=== PATIENT | male | born 1995 | race Caucasian/White ===

== ENCOUNTER 2021-10-06 06:47 | Observation (INO) | payer BC, SELFPAY ==
[2021-10-06] VITALS (22 sets, daily range): BP systolic 111–142; BP diastolic 66–82; PULSE 64–110; RESP 16–20; TEMP 36.2–37.3; O2SAT 93–98; BMI 25.0
--- NOTE | 2021-10-06 07:17 | P.HP_ITS ---
Providers/Chief Complaint Admitting Physician: Holland Haile MD Chief Complaint: Abdominal pain History of Present Illness Mr.Kage Etienne is a pleasant 26 year old male otherwise healthy presented to outside facility with worsening abdominal pain. Patient experienced sudden onset abdominal pain associated with diarrhea and nausea and vomiting. Patient reports that the pain was started first in the upper abdomen being sharp and dull and then started referring to the right lower quadrant, as he got worse went to the ER for further evaluation. Reports that his son got sick last and his thought that it was a GI bug. Blood work showed WBC count 16.9, hemoglobin 15.8, platelet count 333, sodium 138, potassium 3.5, chloride 99, creatinine 0.8, albumin 5.1. Lactic acid 2.5. A CT scan of the abdomen pelvis was done that showed impression 1. Appendix is dilated up to 8 mm on series 2, image 63. May be slightly hyperemic. There is no significant periappendiceal inflammation. Nevertheless early acute appendicitis cannot be excluded in the appropriate clinical setting. 2. Findings may be related to ileus or enteritis. 3. Mildly prominent right lower quadrant lymph nodes may be seen mesenteric adenitis Patient was transferred to [facility] from [facility] as I accepted the patient for surgical evaluation and potential intervention. Patient received 1 dose of Levaquin per my request Review of Systems General: Reports: 10 or more systems reviewed and unremarkable except in HPI and below Physical Exam Const: COMMON NORMALS: no acute distress and patient oriented x3 GENERAL APPEARANCE: cooperative ORIENTATION/CONSCIOUSNESS: Yes awake, Yes oriented to person, Yes oriented to place and Yes oriented to time HENMT: COMMON NORMALS: normocephalic HEAD & SCALP: normocephalic Eye: COMMON NORMALS: Equal, round and reactive pupils present and no scleral icterus PUPIL: Yes Equal, round and reactive pupils present Lymph: LYMPHATIC: no lymphadenopathy noted Chest: COMMONS NORMALS: normal inspection of the chest Resp: COMMON NORMALS: normal respiratory effort and clear to auscultation bilaterally AUSCULTATION: clear to auscultation bilaterally Cardio: COMMON NORMALS: S1 normal heart sound present and S2 normal heart sound present; negative for No murmurs present (Cardio) HEART SOUNDS: S1 normal heart sound present and S2 normal heart sound present GI: COMMON NORMALS: Soft to palpation; negative for No hepatosplenomegaly present INSPECTION: Yes normal to inspection PALPATION: Yes Soft to palpation, No Firmness to palpation present (GI), Yes Tenderness to palpation present (GI) Details: RLQ (Localized guarding and tenderness at McBurney's point), No Guarding due to palpation present (GI), No Rigid due to palpation and No No hepatosplenomegaly present Neuro: COMMON NORMALS: patient oriented x3 SENSORIUM/ORIENTATION: Yes oriented to person, Yes oriented to place and Yes oriented to time Psych: COMMON NORMALS: mental status grossly normal Skin: COMMON NORMALS: no rashes or lesions noted GENERAL SKIN EXAM: no rashes or lesions noted A&P Assessment and plan (1) Acute appendicitis: After thorough history physical examination and reviewing the chart and images of the CT scan of the abdomen pelvis from the outside facility with my personal interpretion, I counseled the patient for laparoscopic appendectomy possible open. Indications, risks, benefits and alternatives were all discussed with the patient and did agree to proceed. Rationale was carefully and clearly discussed with the patient.Appropriate informed consent have been reviewed and signed. Status: Acute Attestations Medical Necessity Statement*: Observation for perioperative care Coding Level of Care Code Acute Chemistry Teacher for [facility] Fwd Exam Comprehensive Diagnoses Acute appendicitis K35.80
[2021-10-06] MEDS: morphine 4 mg/mL SDV 1 mL 2 MG IVP ×4 (07:22→19:21)
[2021-10-06] MEDS: lactated ringers 1,000 ML 150 ML IV ×3 (07:23→21:12)
--- NOTE | 2021-10-06 09:08 | ANES.PREANE2 ---
Pre-Anesthetic Assessment Height/Weight: Temp Pulse Resp BP Pulse Ox 98.1 F 106 H 16 114/66 97 10/06/21 07:36 10/06/21 07:36 10/06/21 07:36 10/06/21 07:36 10/06/21 07:36 Preop Diagnosis: Acute appendicitis Operation Date: 10/06/21 10:05 Proposed Procedures p Laparoscopic Appendectomy(Not Applicable) - Holland Haile MD Familial anesthetic complications: None Was Beta Yohana taken within 24 hours: N/A Was Clonidine taken within 24 hours: N/A Social No alcohol and No tobacco Exam alert, oriented x 3, clear to auscultation bilaterally and regular rate & rhythm Airway Submandibular: within normal limits Cervical ROM: within normal limits Mallampati: Class II Dentition: full History/ROS No significant history except as noted Anesthetic Plan ASA status: 1 Anesthesia: General Medications/Allergies Current Medications Generic Name Dose Route Start Last Admin Trade Name Freq PRN Reason Stop Dose Admin Lactated Ringer's 1,000 mls @ 150 mls/hr 10/06/21 07:15 10/06/21 07:23 Lactated Ringers IV 150 mls/hr .[id number] UMU Administration Morphine Sulfate 2 mg 10/06/21 07:06 10/06/21 07:22 Morphine 4 Mg/Ml Sdv 1 Ml IVP 2 mg Q2H PRN Administration SEVERE PAIN Data Anesthesia Cardiac Studies: No Data to Display
[2021-10-06] MEDS: acetaminophen 1,000 MG/100 ML PIGGYBACK 400 MG IV (09:47)
[2021-10-06] MEDS: sodium chloride 0.9% 1,000 ML 30 ML IV (11:30)
--- NOTE | 2021-10-06 12:22 | PM.OP ---
Operative Report Date of procedure: October 06, 2021 Pre-op diagnosis: Preop Diagnosis Acute appendicitis Post-op diagnosis: Acute retrocecal appendicitis Procedure done: Laparoscopic appendectomy Specimens removed/disposition: Appendix Surgeon: Holland Haile MD Teletypewriter Operator: Surgical karol Solomon Circulating nurse Nasreen Desai Estimated blood loss (mL): 5 Procedure: Patient after being identified in the holding area and asked to void urine, and informed consent per chart ,patient was then taken back to the OR placed in supine position got intubated by anesthesia left arm was tucked tucked ,Timeout was done verifying the patient's name/date of /planned procedure and destination after the procedure, all were in agreement., preoperative antibiotics administered per protocol. prep and drape of the abdomen was done under the usual sterile technique. Started by longitudinal skin incision supraumbilical using a Carpio trocar technique safe entry to the abdominal cavity was achieved verified by using 10 mm zero degree laparoscopy, switched to a 30? scope under direct visualization a suprapubic 5 mm trocar was inserted followed by another 5 mm trocar inserted in the left lower quadrant, I was able to position the patient in an T Sky and left side down, dissection of the prececal acutely inflamed appendix there was some adhesions towards the lateral pelvic wall that was taken down by sharp and blunt dissection, attention was deviated to the healthy base of the appendix where I had to switch the camera to 5 mm 30? scope got introduced through the left lower quadrant and through the Carpio trocar under direct visualization a GI stapler 45 mm blue load was applied at the healthy part of the base of the appendix, and an Endoloop PDS was applied onto the mesoappendix for control , the appendix was then retrieved in an Endo Catch bag, final survey was done of the abdomen and pelvis , showed no bleeding or evidence of injuries Multiple 5 mm clips were applied onto the mesoappendix as well as the appendectomy staple line and a right lateral pelvic wall for minimal oozing. Final look laparoscopy was done showing no other abnormalities or injuries, all trocars were taken out under direct visualization after the supraumblical trocar site was closed by #1 PDS sutures under direct vision using fascial closure device ,followed by skin closure using 3-0 Vicryl and 4-0 Monocryl of all trocar site incisions. infiltration of local lidocaine 2% was done to all incision sites.Dry dressing was applied. Count was completed at the end of the procedure for [employer],sponges and instruments Patient tolerated the procedure well and was transferred to the recovery area after extubation. I was present for the whole entire procedure
[2021-10-06] MEDS: HYDROmorphone 1 mg/mL INJ 1 mL 0.5 MG IVP (12:46)
[2021-10-06] MEDS: levofloxacin-dextrose 5 % 500 MG/100 ML PREMIX 100 MG IV (13:49)
[2021-10-06] MEDS: HYDROcodone-acetaminophen 5-325 mg Tablet 1 TAB PO ×2 (13:52→21:16)
--- NOTE | 2021-10-06 15:41 | ANE.PACU2 ---
Inpatient post-anesthesia follow up: Airway intact: Yes Vital signs: Temperature 98.2 F Pulse Rate 98 Respiratory Rate 18 Blood Pressure 123/75 Pulse Oximetry 95 Oxygen Delivery Me thod Room Air Oxygen Flow Rate Fraction of Inspir ed Oxygen Hydration adequate: Yes Nausea and vomiting: No Pain level: 3 Mental status: Baseline
--- NOTE | 2021-10-06 18:13 | PC.NURSE ---
Patient was a direct admit that got here around 0630 this AM. Patient went for appendectomy. Post procedure patient has fluids running and pain is being controlled with PRN medications. Patient is up and walking around in room. Incisions are intact and open to air. Patient ate a clear liquid dinner and tolerated well. Bowel sounds are present but no bowel movement. Will continue to monitor and give report to night nurse.
[2021-10-07] VITALS: BP 117/69; PULSE 52; RESP 14; TEMP 37.1; O2SAT 97
[2021-10-07 01:42] VITALS: RESP 18
[2021-10-07] MEDS: morphine 4 mg/mL SDV 1 mL 2 MG IVP ×2 (01:42→06:21)
[2021-10-07 04:00] VITALS: BP 133/72; PULSE 98; RESP 15; TEMP 37.1; O2SAT 98
[2021-10-07] MEDS: HYDROcodone-acetaminophen 5-325 mg Tablet 1 TAB PO (04:20)
[2021-10-07 05:53] LABS: Anion Gap 15.1 (5-19); Blood Urea Nitrogen 8 mg/dL (6-20); Calcium 9.4 mg/dL (8.5-10.5); Carbon Dioxide 24 mmol/L (22-29); Chloride 102 mmol/L (98-107); Glomerular Filtration Rate 162.9 mL/min (90-130); Glucose 127 mg/dL (65-115); Osmolality Calculated 284 mOsm/kg (285-295); Potassium 4.1 mmol/L (3.5-5.1); Sodium 137 mmol/L (136-145)
--- NOTE | 2021-10-07 05:59 | P.SS_ITS ---
Short Stay Summary Providers Date of Admit/Discharge: 10/07/21 Attending Provider: Holland Haile MD Chief Complaint: Abdominal pain HPI History of Present Illness Mr.Kage Etienne is a pleasant 26 year old male otherwise healthy presented to outside facility with worsening abdominal pain.? Patient experienced sudden onset abdominal pain associated with diarrhea and nausea and vomiting.? Patient reports that the pain was started first in the upper abdomen being sharp and dull and then started referring to the right lower quadrant, as he got worse went to the ER for further evaluation.? Reports that his son got sick last and his thought that it was a GI bug. Blood work showed WBC count 16.9, hemoglobin 15.8, platelet count 333, sodium 138, potassium 3.5, chloride 99, creatinine 0.8, albumin 5.1.? Lactic acid 2.5. A CT scan of the abdomen pelvis was done that showed impression 1.? Appendix is dilated up to 8 mm on series 2, image 63.? May be slightly hyp eremic.? There is no significant periappendiceal inflammation.? Nevertheless early acute appendicitis cannot be excluded in the appropriate clinical setting. 2.? Findings may be related to ileus or enteritis. 3.? Mildly prominent right lower quadrant lymph nodes may be seen mesenteric adenitis Patient was transferred to [facility] from [facility] as I accepted the patient for surgical evaluation and potential intervention. Patient received 1 dose of Levaquin per my request Patient undergone uneventful laparoscopic appendectomy for acute appendicitis Review of Systems General: Reports: 10 or more systems reviewed and unremarkable except in HPI and below Home Meds/Allergies Home Medications and Allergies Allergies Allergy/AdvReac Type Severity Reaction Status Date / Time Penicillins Allergy ADR-Itching Verified 10/07/21 17:27 Vitals/I&O/Wt Last Vital Signs Temp 98.7 F 10/07/21 04:00 Pulse 98 10/07/21 04:00 Resp 15 10/07/21 04:00 BP 133/72 10/07/21 04:00 Pulse Ox 98 10/07/21 04:00 10/06/21 10/06/21 10/07/21 14:59 22:59 06:59 Intake Total 3272.5 / 3272.5 1100 / 4372.5 Output Total 500 / 520 1500 / 2020 Balance 3252.5 / 3252.5 600 / 3852.5 -1500 / 2352.5 Weight last 48 hrs Weight 160 lb Physical Exam Narrative: Patient is conscious alert oriented X3 No apparent distress BMI 25 Head and neck examination PERRLA no masses no cervical lymphadenopathy no jaundice Abdomen nontender nondistended soft no organomegaly guarding or rigidity/no signs of peritonitis Incisions are clean dry and intact Hospital Course Hospital Course Patient undergone uneventful laparoscopic appendectomy and did well. Had smooth postoperative course and his pain was under appropriate control. She met the appropriate criteria for safe discharge home. Discharge Summary This is a pleasant 26 years old gentleman was transferred from outside facility with diagnosis of acute appendicitis, patient undergone uneventful surgery and was kept for observation overnight, maintained to have stable vital signs and adequate urine output. Tolerated p.o. intake and has been passing gas. Diet was advanced and WBC count was normalized. Patient was discharged home after he met the appropriate and safe criteria. We will plan to have the patient follow-up with surgery office in 10 days SSS Data Data Completed and Pending: Pending at discharge Category Date Time Status ES surgery / GI i mages Routine Exams 10/06/21 11:09 Taken Basic Metabolic P patricia AM LABS Lab 10/07/21 05:01 Results CBC Auto Diff [Co mplete Blood Count w/Auto] AM LABS Lab 10/07/21 04:00 Uncollected Pathology: Surgic al [PTH] Routine Pth 10/06/21 12:07 Ordered Procedures Performed: Laparoscopic appendectomy Diagnoses at Discharge Discharge Diagnosis (1) Acute appendicitis: Status: Acute Discharge Plan Discharge Patient Disposition: Home Condition: Stable Prescriptions: New hydrocodone-acetaminophen 5-325 mg tablet 1 tab PO Q6H PRN (Reason: pain) Qty: 28 0RF Discharge Orders: Discharge Order (Routine); Ordered 10/07/21 Ordered By: Holland Haile Referrals: Holland Haile MD [Physician] - 10/17/21 3:15 pm (Return to surgery office in 10 days with a repeat BMP) Discharge Diet: Advance as tolerated Discharge Activity: Limit activity as instructed Patient Instructions: Hydrocodone/Acetaminophen (By mouth) (Vicodin, [place], Lortab), Laparoscopic Appendectomy (DC), Opioid Safety Activity Restrictions/Additional Instructions: 1. Patient can shower after 48 hours from surgery 2. Remove Dermabond 7 to 10 days after surgery, if there is a secondary dressing can take down after 48 hours. 3. Up and walking as tolerated 4. Do not lift more than 5 pounds first 2 weeks after surgery and not more than 25 pounds 6 to 8 weeks after surgery. 5. Do not operate heavy machinery or drive while using pain medications. 6.Contact the office or return to the ER for worsening nausea vomiting fevers or chills, or noticing any redness around incision sites or discharge. Attestations Medical Necessity Statement*: Observation status Time Spent in Patient Care*: greater than 30 min Quality Metrics Clinical Quality Measures: [ No reported AMI, CVA or VTE this stay ] Coding Level of Care Code Acute Per Diem Registered Nurse for [facility] Diagnoses Acute appendicitis K35.80
[2021-10-07 06:13] LABS: Basophils % 0.1 %; Hematocrit 39.6 % (42.0-52.0); Hemoglobin 13.7 g/dL (11.7-16.6); Lymphocytes % 24.1 %; Mean Corpuscular HGB Conc 34.6 g/dL (30.0-36.0); Mean Corpuscular Hemoglobin 30.2 pg (28.0-34.0); Mean Corpuscular Volume 87.2 fl (80-94); Mean Platelet Volume 9.7 fL (7.4-10.4); Monocytes # 0.5 10^3/uL (0.2-0.9); Monocytes % 5.7 %; Neutrophils # 5.89 10^3/uL (1.8-7.7); Neutrophils % 69.7 %; Nucleated Red Blood Cells % 0 %; Platelet Count 244 10^3/cmm (130-400); Red Blood Count 4.54 10^6/uL (4.1-5.3); White Blood Count 8.5 10^3/uL (4.0-10.0)
[2021-10-07 06:21] VITALS: RESP 18
[2021-10-07 08:00] VITALS: BP 133/71; PULSE 107; RESP 13; TEMP 36.9; O2SAT 97
[2021-10-07 09:20] VITALS: BP 133/71; PULSE 107; RESP 13; TEMP 36.9; O2SAT 97
== END 2021-10-07 09:21 | disposition home or self-care (01) ==
PROVIDERS: Admitting Provider Surgery; Visit Provider Surgery
PROC: 0DTJ4ZZ Resection of Appendix, Percutaneous Endoscopic Approach (ICD-10-PCS; CPT 44970; principal; 2021-10-06 09:55)
DX: K35.80 Unspecified acute appendicitis (principal)
CPT/HCPCS: 44970; 36415; 80048; 85025; 88304; G0378; G0379; J1100; J1170; J1956; J2270; J2405; J2704; J2710; J3010; J3490; J7030

== ENCOUNTER → 2021-11-29 09:32 | Outpatient (BNVA) | payer BC, SELFPAY | PROVIDERS: Visit Provider Surgery | DX: Z90.49 Acquired absence of other specified parts of digestive tract (principal) | CPT/HCPCS: 36415; 80048 ==